=== PATIENT | male | born 1960 | race Caucasian/White ===

== ENCOUNTER 2022-09-25 12:56 | Emergency (ER) | payer OTHER ==
[~2022-09-25] VITALS: Ht 182.9 cm; Wt 113.4 kg
[2022-09-25] MEDS ORDERED: VISTARIL50 MG PO (15:49)
== END 2022-09-25 16:03 | disposition home or self-care (01) ==
LOC: ER 12:56
DX: F41.9 Anxiety disorder, unspecified (principal); I10 Essential (primary) hypertension